=== PATIENT | male | born 1970 | race Caucasian/White ===

== ENCOUNTER 2021-11-11 15:32 | Emergency (ER) | payer OTHER ==
[~2021-11-11] VITALS: Ht 170.2 cm; Wt 83.9 kg
[2021-11-11 15:34] VITALS: BP 137/66
[2021-11-11] MEDS ORDERED: OXYC5TAB3 PO (16:24)
--- NOTE | 2021-11-11 16:46 | NUR ---
Patient discharged to home in stable condition. Written and verbal after care instructions given. Patient verbalizes understanding of instruction.
== END 2021-11-11 16:47 | disposition home or self-care (01) ==
LOC: ER 15:37
DX: G89.18 Other acute postprocedural pain (principal); M25.511 Pain in right shoulder; F17.200 Nicotine dependence, unspecified, uncomplicated; Z79.891 Long term (current) use of opiate analgesic

== ENCOUNTER 2021-12-13 01:08 | Emergency (ER) | payer OTHER ==
[~2021-12-13] VITALS: Ht 177.8 cm; Wt 86.2 kg
[~2021-12-13 01:08] MED LIST: OXYC5TAB3 PO
--- NOTE | 2021-12-13 01:20 | NUR ---
BIBRA 878 FROM HOTEL C/O ETOH AND LEFT SHOULDER PAIN CHRONIC FELT WORSE TODAY . PT TOLERATING R/A WELL WITH NO SOB. AMBULATORY WITH STEADY GAIT. CONNECTED PT TO POX AND MONITOR.
[2021-12-13 01:59] LABS: BASOPHILS # (AUTO) 0.1 K/uL (0.0-0.2); BASOPHILS % (AUTO) 1.2 % (0.0-2.0); EOSINOPHILS % (AUTO) 3.9 % (0.0-6.0); HEMATOCRIT 49 % (39-51); HEMOGLOBIN 16.3 g/dL (13.5-17.5); LYMPHOCYTES # (AUTO) 2.5 K/uL (0.8-4.8); MEAN CORPUSCULAR HGB CONC 34 g/dl (31.0-36.0); MEAN CORPUSCULAR VOLUME 95 fL (80-96); MONOCYTES # (AUTO) 0.4 K/uL (0.1-1.30); MONOCYTES % (AUTO) 7.1 % (2.0-12.0); NEUTROPHILS # (AUTO) 2.7 K/uL (1.8-8.9); NEUTROPHILS % (AUTO) 45.8 % (43.0-81.0); PLATELET COUNT (AUTO) 109 K/uL (150-450); RED BLOOD CELL COUNT(AUTO) 5.12 MIL/uL (4.5-6.0)
[2021-12-13 02:09] LABS: CALCIUM, SERUM 8.2 mg/dL (8.5-10.1); CARBON DIOXIDE 23 mmol/L (21-32); CHLORIDE 107 mmol/L (98-107); CREATININE 0.8 mg/dL (0.6-1.3); GLUCOSE 151 mg/dL (74-106); SODIUM SERUM 143 mmol/L (136-145); UREA NITROGEN, BLOOD 7 mg/dL (7-18)
[2021-12-13 02:11] LABS: POTASSIUM 2.7 mmol/L (3.5-5.1)
[2021-12-13] MEDS ORDERED: POTASSIUM CHLORIDE 20 MEQ TAB.PRT.SR PO ONE ×2 (02:30→03:27)
--- NOTE | 2021-12-13 04:51 | NUR ---
CALLED [facility] TO F/U WITH XRAY RESULTS
--- NOTE | 2021-12-13 06:32 | NUR ---
PT SLEPT THROUGHOUT NIGHT. NO COMPLAINTS. TOLERATING R/A WELL WITH NO SOB. WILL CONTINUE SAFETY MEASURES. ALL NEEDS MET AT THIS TIME.
--- NOTE | 2021-12-13 07:20 | NUR ---
ASSESSED PT ON BED AWAKE AND ALERT, NOT IN RESPIRATORY DISTRESS, V/S STABLE, KEPT RESTED AND COMFORTABLE. WILL CONTINUE TO MONITOR.
--- NOTE | 2021-12-13 10:03 | NUR ---
SS Note: Pt. Is a 51-year-old male who demonstrates adequate insight to the reason for hospitalization. Per pt., he presents to the ER for ETOH and left shoulder pain. Pt. was oriented x3, alert, and was hardly cooperative. During interview, pt. was capable of following directions and appeared unkempt. Pt.'s speech was at a low rate and pt.'s mood was elevated. Pt. reported no hx of mental health, and denies suicidal ideation, or homicidal ideation. Pt. denies auditory hallucinations, visual hallucinations, paranoia, or delusions. SW explored pt.'s living situation. Per pt., he is currently living in a hotel with a friend. Before pt. came to the hospital, pt. stated that he was drinking alcohol [did not state what kind]. Pt. refuses to answer any further questions and mentioned that he is feeling dehydrated. Plan: Pt.'s alcohol level serum is still high. Upon discharge, pt. will return to the hotel.
--- NOTE | 2021-12-13 11:55 | NUR ---
PT ABLE TO AMBULATE WITHOUT ASSISTANCE.
--- NOTE | 2021-12-13 12:00 | NUR ---
Patient discharged to home in stable condition. Written and verbal after care instructions given. Patient verbalizes understanding of instruction.
[2021-12-13 12:02] VITALS: BP 125/64
== END 2021-12-13 12:03 | disposition home or self-care (01) ==
LOC: ER 01:08
DX: M25.512 Pain in left shoulder (principal); F10.129 Alcohol abuse with intoxication, unspecified; R94.31 Abnormal electrocardiogram [ECG] [EKG]; F17.200 Nicotine dependence, unspecified, uncomplicated; Z98.890 Other specified postprocedural states; Z60.2 Problems related to living alone; Y90.8 Blood alcohol level of 240 mg/100 ml or more
CPT/HCPCS: 36415; 71045-TC; 73030-TC; 80048-TC; 84484-TC; 85025-TC; G0480

== ENCOUNTER 2021-12-16 13:11 | Emergency (ER) | payer OTHER ==
[~2021-12-16] VITALS: Ht 177.8 cm; Wt 89.4 kg
--- NOTE | 2021-12-16 13:23 | NUR ---
To er bed 9, NORMA RA88 From Home "Had shoulder surg 6wks ago. Still having pain" Denies injury +ETOH, aaox3, breathing even and non labored, amelia cooper orders
--- NOTE | 2021-12-16 14:05 | NUR ---
SS Consult: SS Consult requested for alcohol abuse & Homelessness. The pt. is a 51-year old male who came to [facility] ED due to post operative shoulder pain. The pt. appears unkempt is A&O X4 and makes good eye contact. Pt. has slurred speech possibly due to alcohol intoxications. Pt.s thought process are WNL. Pt. denies SI/HI an denies hallucinations. Pt.s mood is Depressed with distressed affect. KRISTIAN explored pt.s living situation. Pt. states he has been homeless and was staying in a hotel because a friend was helping him. However, pt. reports he has been on the street for the past 10 days. SW explored pt.s mental health Hx. Pt. denies any mental health illness or psychotropic medications. SW explored pt.s drug & ETOH use. Patient admits to daily alcohol use and states he is self-medicating because he ran out of the medication and missed his doctors appointment. SW used motivational interviewing, educated pt. on negative long-term effects of alcohol dependence. SW offered rehab for alcohol use and pt. refused. SW explored pt.s support system. Pt. states he has a sponsor who he may be able to get help from and will go to their house upon discharged. Pt. states he is ambulatory and independent with his ADLs. D/C PLAN: SW Offered pt. long-term placement and pt. refused and stated I will go to my friends house. Pt. could not provide address but stated he knows how to get there. SW provided pt. with TAP card, homeless resources and pt. accepted them. Pt. signed homeless waiver and it was placed in the pt.s chart. KRISTIAN discussed with Silas FLORES. Year-round shelters: [place] [facility] [address] [place] [address] ; [facility] [place] [address]; [facility] Satwmcj6686 [facility]. [facility] [address] Hygiene: [facility]: [address]. [place] ; [facility] [address] [facility] ; [facility] [address] . Food Resources: [facility] at [facility]- [address]. [place]; Meet Each Need with Dignity ([facility]) [address] [facility]; [facility] [address] [facility]; [facility] [address] [place]. Mental Health resources provided: [facility] [address] [place], [place] [address] ; [facility] [address] [facility] [address], [place], [place] [id number] ; [facility] [address] [place], [place] [id number] ; [facility] [address] [place], [place] [address] Healthcare Clinics: [facility] [address] [facility], [address] [place]. [place] ; [facility] [address] [facility] [address] [place] [address]; [facility] [address] [facility] [place] [address] [phone]) [phone] Counseling--Outpatient [facility] [address] [facility], [address] [place], [place] [address] (Specializes in in-depth psychotherapy for emotional distress: anxiety, depression, interpersonal conflicts, life transitions, childhood abuse) [facility] [address] [place] [address] (Assist with solving problem marital difficulties, separation & divorce, aging parents, & grief, chronic & terminal illness) [facility] [address] [place] [address] (Deal with loss & grief, anxiety, marital difficulties) Homebound/Mental Health Services [address] [facility], [address] [place], [place] [id number] (Provide in-home mental services to people who are incapable of leaving their homes) [facility] Elderly Senior Service/Resource Center [address] [place], [place] [id number] [facility] [address] [facility] [place] [address] PSYCHIATRIC OUTPATIENT SERVICES [facility] Partial Hospitalization and Intensive Outpatient Program (Managed Care and [place] Only)[address] [facility] [phone] [facility] Partial Hospitalization and Outpatient [address] [place], [place] [phone] [facility] Sch[address] [facility]. [address] [place], [place] [phone] [facility] Partial Hospitalization and Outpatient [address] [place] [address] [place], [phone] Substance Abuse resources provided included: [facility] Substance Abuse Self-Helpline ([facility]) ; [facility] [address] [facility]. [place] [address] ; [facility] [address] [facility] [address] ; [facility] Program [address] [address] ; [facility] [address] [facility] [address] ; [facility] [address] [facility] [phone] ; [facility] [address] [facility] [address] ; [facility] Substance Abuse Helpline([facility] ; [facility] ; [facility]; [facility] [place]; [facility] [place]; [facility] [address]; [facility]; [facility]; [facility]; [facility], [facility]. [place]; Alcoholics Anonymous -[facility]; [place] ; Marijuana Anonymous [facility]; Narcotics Anonymous www.na.org;
--- NOTE | 2021-12-16 14:10 | NUR ---
Patient discharged to home in stable condition. Written and verbal after care instructions given. Patient verbalizes understanding of instruction.
[2021-12-16 14:11] VITALS: BP 131/78
== END 2021-12-16 14:11 | disposition home or self-care (01) ==
LOC: ER 13:14
DX: F10.129 Alcohol abuse with intoxication, unspecified (principal); M25.512 Pain in left shoulder; F17.200 Nicotine dependence, unspecified, uncomplicated; Z79.899 Other long term (current) drug therapy; Y90.9 Presence of alcohol in blood, level not specified

== ENCOUNTER 2021-12-25 11:28 | Emergency (ER) | payer OTHER ==
[~2021-12-25] VITALS: Ht 177.8 cm; Wt 90.7 kg
--- NOTE | 2021-12-25 11:32 | NUR ---
[id number], "ETOH, UNABLE TO TAKE CARE OF SELF, CALLED 911". TO ER BED13. HOOKED TO MONITOR, VSS, CHANGED TO HOSP GOWN, WARM BLANKET PROVIDED. AWAITING MD LINDA
--- NOTE | 2021-12-25 12:05 | NUR ---
PT IS BACK FROM CT SCAN.
--- NOTE | 2021-12-25 16:50 | NUR ---
PT ABLE TO AMBULATE WITHOUT ASSISTANCE. AWARE.
--- NOTE | 2021-12-25 17:01 | NUR ---
Patient discharged to home in stable condition. Written and verbal after care instructions given. Patient verbalizes understanding of instruction.
[2021-12-25 17:02] VITALS: BP 125/82
== END 2021-12-25 17:02 | disposition home or self-care (01) ==
LOC: ER 11:42
DX: F10.229 Alcohol dependence with intoxication, unspecified (principal); F17.200 Nicotine dependence, unspecified, uncomplicated; G89.29 Other chronic pain; Z79.899 Other long term (current) drug therapy; Y90.9 Presence of alcohol in blood, level not specified
CPT/HCPCS: 70450-TC

== ENCOUNTER 2021-12-25 19:49 | Emergency (ER) | payer OTHER ==
[~2021-12-25] VITALS: Ht 177.8 cm; Wt 90.7 kg
--- NOTE | 2021-12-25 20:28 | NUR ---
BRI [address] C/O BEING FOUND ON SIDE WALK WITH BEER CANS AND cigarette next to him. vss, no acute distress noted. taken to er bed 14
--- NOTE | 2021-12-26 00:35 | NUR ---
PT SLEEPING. IN NO ACUTE DISTRESS AT THIS TIME. VSS. ALL NEEDS MET. SAFETY MEASURES CONTINUED.
--- NOTE | 2021-12-26 02:31 | NUR ---
ADLS DONE. PT URINATED. ALL NEEDS MET AT THIS TIME
--- NOTE | 2021-12-26 06:15 | NUR ---
PT IS AWAKE. NOT IN ANY DISTRESS. PT IS AMBULATORY ON STEADY GAIT. PROVIDED WITH WATER AND GATORADE. PT IS CLEARED FOR DISCHARGE
--- NOTE | 2021-12-26 06:17 | NUR ---
Patient discharged to home in stable condition. Written and verbal after care instructions given. Patient verbalizes understanding of instruction. Pt ambulatory with a steady gait
[2021-12-26 06:18] VITALS: BP 132/78
== END 2021-12-26 06:18 | disposition home or self-care (01) ==
LOC: ER 19:53
DX: F10.129 Alcohol abuse with intoxication, unspecified (principal); Z79.899 Other long term (current) drug therapy; Y90.9 Presence of alcohol in blood, level not specified

== ENCOUNTER 2022-08-10 08:11 | Inpatient (IN) | payer OTHER ==
[~2022-08-10] VITALS: Ht 177.8 cm; Wt 88.0 kg
[2022-08-10] MEDS ORDERED: LORAZEPAM INJ 2 MG/ML VIAL ONE (08:24)
[2022-08-10] MEDS ORDERED: LORAZEPAM INJ 2 MG/ML VIAL IV ONE (08:30)
[2022-08-10] MEDS ORDERED: IV NS 0.9% 1,000 ML BAG IV ONE (08:30)
[2022-08-10 08:35] LABS: BASOPHILS % (AUTO) 0.2 % (0.0-2.0); EOSINOPHILS % (AUTO) 0.1 % (0.0-6.0); HEMATOCRIT 37 % (39-51); LYMPHOCYTES # (AUTO) 0.5 K/uL (0.8-4.8); LYMPHOCYTES % (AUTO) 5.5 % (20.0-44.0); MEAN CORPUSCULAR HGB CONC 33 g/dl (31.0-36.0); MEAN CORPUSCULAR VOLUME 101 fL (80-96); MONOCYTES # (AUTO) 1.4 K/uL (0.1-1.30); MONOCYTES % (AUTO) 15.3 % (2.0-12.0); NEUTROPHILS # (AUTO) 7.1 K/uL (1.8-8.9); NEUTROPHILS % (AUTO) 78.9 % (43.0-81.0); PLATELET COUNT (AUTO) 91 K/uL (150-450)
--- NOTE | 2022-08-10 08:36 | NUR ---
Patient bibra60 [place], c/o being cold only wearing hospital gown. On room air. Warmer applied on the patient. IV access in placed. Ativan and Normal saline given. Kept comfortable, will continue to monitor accordingly. Connected to the monitor and pulse ox.
--- NOTE | 2022-08-10 08:48 | NUR ---
COVID SWAB TAKEN
[2022-08-10 08:59] LABS: ALBUMIN 4.2 g/dL (3.4-5.0); BILIRUBIN,DIRECT 1.7 mg/dL (0.0-0.2); BILIRUBIN,TOTAL 2.5 mg/dL (0.2-1.0); CALCIUM, SERUM 8.2 mg/dL (8.5-10.1); CREATININE 1.6 mg/dL (0.6-1.3); TOTAL PROTEIN, SERUM 7.7 g/dL (6.4-8.2)
[2022-08-10 09:06] LABS: POTASSIUM 2.6 mmol/L (3.5-5.1)
--- NOTE | 2022-08-10 09:08 | NUR ---
2.6 POTASSIUM , MADE AWARE
[2022-08-10] MEDS ORDERED: POTASSIUM CL. PREMIX PERIPHER. 50 ML ONE ×5 (09:30→13:30)
[2022-08-10] MEDS ORDERED: IV NS 0.9% 1,000 ML IV ONE (09:30)
[2022-08-10] MEDS: POTASSIUM CL. PREMIX PERIPHER. 50 ML IV SCH ×6 (09:40→16:10)
--- NOTE | 2022-08-10 09:49 | NUR ---
RECTAL TEMP 93.8f
--- NOTE | 2022-08-10 10:06 | NUR ---
Received a call from Mercedes AVILEZ from [facility] and gave a verbal auth.
[2022-08-10] MEDS: IV NS 0.9% 1,000 ML IV SCH ×2 (10:28→16:09)
[2022-08-10] MEDS ORDERED: ONDANSETRON HCL/PF 4 MG/2 ML VIAL IVP PRN (10:30)
[2022-08-10] MEDS ORDERED: ACETAMINOPHEN 325 MG TABLET PO PRN (10:30)
[2022-08-10] MEDS ORDERED: MAGNESIUM HYDROXIDE 30 ML UDC PO PRN (10:30)
[2022-08-10] MEDS ORDERED: MAG HYDROX/AL HYDROX/SIMETH 30 ML UDC PO PRN (10:30)
[2022-08-10] MEDS ORDERED: Z GUARD REMEDY 4 OZ OINT TP PRN (10:30)
[2022-08-10] MEDS ORDERED: THIAMINE HCL 100 MG TABLET PO ONE (10:30)
[2022-08-10] MEDS ORDERED: LORAZEPAM INJ 2 MG/ML VIAL IV PRN (10:30)
[2022-08-10] MEDS ORDERED: LACTULOSE 10 G/15 ML UDC (PYXIS) PO ONE (11:00)
[2022-08-10] MEDS ORDERED: LACTULOSE 10 G/15 ML UDC (PYXIS) ONE (11:50)
[2022-08-10] MEDS ORDERED: THIAMINE HCL 100 MG TABLET ONE (12:36)
--- NOTE | 2022-08-10 14:08 | NUR ---
ASSIGNED BED 107 , ADMITTING MADE AWARE
--- NOTE | 2022-08-10 14:22 | NUR ---
report given to Nurse Kashmir MARTÍNEZ for ANISH
[2022-08-10 14:48] VITALS: BP 138/74
[2022-08-10] MEDS ORDERED: POTASSIUM CHLORIDE 20 MEQ TAB.PRT.SR PO ONE (17:00)
[2022-08-10 17:14] LABS: LYMPHOCYTES % (MANUAL) 6 % (16-48); MONOCYTES % (MANUAL) 14 % (0-11.0); NEUTROPHILS % (MANUAL) 80 (42-76)
[2022-08-10] MEDS: CHLORDIAZEPOXIDE HCL 25 MG CAPSULE PO SCH (17:38)
--- NOTE | 2022-08-10 19:10 | NUR ---
POOL CLEANER OPENING NOTE PATIENT IS IN BED WATCHING TV. HE IS ALERT AND ORIENTED, AO X 4. HE IS ON RA, O2 SAT IS 97%; TOLERATED WELL. NO S/S OF SOB OR DISTRESS. PATIENT HAS TWO IV ACCESS: ONE IS AT HIS L UA, ML, #18G, RUNNING NS @ 125 ML/HR; ANOTHER IS AT HIS LEFT HAND. #22G, SL. BOTH ACCESS ARE PATENT AND INTACT. PATIENT IS ON EXTERNAL TELE MONITOR, ON THE MONITOR, HIS HEAR RHYTHM IS SR WITH HR AT 70S. ACCORDING TO CHANGE SHIFT REPORT, PATIENT'S BLOOD POTASSIUM LEVEL WAS LOW EARLIER TODAY, IT HAS BEING REPLACED DURING THE DAY SHIFT. SAFETY MEASURES ARE IN PLACE: BED IN LOWEST AND LOCKED POSITION; SIDE RAILS UP X 2; CALL LIGHT AND TABLE ARE WITHIN REACH; SNACKS PROVIDED PER PATIENT REQUEST. WILL CONTINUE MONITOR THE PATIENT AND PROVIDE THE CARE PATIENT NEEDS.
--- NOTE | 2022-08-10 19:21 | NUR ---
RN NOTE PATIENT TRANSFERRED FROM ER AT 1448, REPORT GIVEN BY ARIADNA BLUM. PATIENT IS AOX4, BREATHING ON ROOM AIR AT 97%. TELE MONITOR READING ST WITH HR OF 108. NO PAIN NOTED AT THIS TIME. IV ACCESS ON ÁLVARO MIDLINE AND LH #22G RUNNING NS AT 125MLS. PATIENT BELONGINGS ACCOUNTED FOR. PICTURES TAKEN AND PLACED IN CHART. ALL SAFETY PRECAUTIONS IN PLACE, BED LOCKED IN LOWEST POSITION. CALL LIGHT AND TABLE WITHIN REACH. WILL ENDORSE CONTINUITY OF CARE TO HAND CELL TUBER NURSE.
[2022-08-10 20:00] VITALS: BP 114/66
[2022-08-11] MEDS: IV NS 0.9% 1,000 ML IV SCH ×3 (01:58→19:20)
[2022-08-11 04:00] VITALS: BP 103/70
--- NOTE | 2022-08-11 07:42 | NUR ---
DOCUMENT CONTROLLER CLOSING NOTE PATIENT IS IN BED. HE IS ALERT AND ORIENTED, AO X 4. HE IS ON RA, O2 SAT IS 97%; TOLERATED WELL. NO S/S OF SOB OR DISTRESS. CHEST X-RAY IS DONE DURING CHANGE SHIFT. PATIENT HAS TWO IV ACCESS: ONE IS AT HIS L UA, ML, #18G, RUNNING NS @ 125 ML/HR; ANOTHER IS AT HIS LEFT HAND. #22G, SL. BOTH ACCESS ARE PATENT AND INTACT. PATIENT IS ON EXTERNAL TELE MONITOR, ON THE MONITOR, HIS HEAR RHYTHM IS SR WITH HR AT 70S. SAFETY MEASURES ARE IN PLACE: BED IN LOWEST AND LOCKED POSITION; SIDE RAILS UP X 2; CALL LIGHT AND TABLE ARE WITHIN REACH; SNACKS PROVIDED PER PATIENT REQUEST. WILL ENDORSE THE NEXT SHIFT FOR CONTINUING PATIENT CARE. Addendum: 08/11/22 at 0746 by SYL MENDEZ RN NO X-RAY IS DONE FOR THIS PATIENT. ERROR.
[2022-08-11 08:00] VITALS: BP 120/77
[2022-08-11 08:06] LABS: BASOPHILS % (AUTO) 0.3 % (0.0-2.0); EOSINOPHILS % (AUTO) 0.5 % (0.0-6.0); HEMATOCRIT 30 % (39-51); LYMPHOCYTES # (AUTO) 1.3 K/uL (0.8-4.8); LYMPHOCYTES % (AUTO) 23.7 % (20.0-44.0); MEAN CORPUSCULAR HGB CONC 34 g/dl (31.0-36.0); MEAN CORPUSCULAR VOLUME 100 fL (80-96); MONOCYTES # (AUTO) 1.1 K/uL (0.1-1.30); MONOCYTES % (AUTO) 19.4 % (2.0-12.0); NEUTROPHILS # (AUTO) 3.1 K/uL (1.8-8.9); NEUTROPHILS % (AUTO) 56.1 % (43.0-81.0); PLATELET COUNT (AUTO) 77 K/uL (150-450); RED BLOOD CELL COUNT(AUTO) 2.97 MIL/uL (4.5-6.0); WHITE BLOOD COUNT (AUTO) 5.6 K/uL (4.3-11.0)
[2022-08-11 08:14] LABS: CALCIUM, SERUM 7.8 mg/dL (8.5-10.1); CREATININE 0.8 mg/dL (0.6-1.3); MAGNESIUM 1.8 mg/dL (1.8-2.4); PHOSPHORUS 1.1 mg/dL (2.5-4.9)
[2022-08-11 08:42] LABS: POTASSIUM 2.8 mmol/L (3.5-5.1)
[2022-08-11] MEDS: FOLIC ACID 1 MG TABLET PO SCH (09:58)
[2022-08-11] MEDS: MULTIVITAMINS,THERAGRAN 1 UDTAB TABLET PO SCH (09:58)
[2022-08-11] MEDS: CHLORDIAZEPOXIDE HCL 25 MG CAPSULE PO SCH ×2 (09:58→16:10)
[2022-08-11] MEDS ORDERED: K PHOS NEUTRAL 250 MG TABLET PO ONE (11:30)
[2022-08-11 12:00] VITALS: BP 106/77
[2022-08-11] MEDS ORDERED: POTASSIUM CHLORIDE 20 MEQ TAB.PRT.SR PO ONE (12:00)
[2022-08-11] MEDS: POTASSIUM CHLORIDE 20 MEQ TAB.PRT.SR PO SCH ×5 (12:34→16:09)
[2022-08-11] MEDS: POTASSIUM PHOSPHATE MM 7.5 MMOL in IV NS 0.9% 100 ML IV SCH ×2 (12:35→16:09)
[2022-08-11 16:00] VITALS: BP 114/76
[2022-08-11 20:00] VITALS: BP 108/76
[2022-08-11 20:18] LABS: LYMPHOCYTES % (MANUAL) 22 % (16-48); MONOCYTES % (MANUAL) 9 % (0-11.0); NEUTROPHILS % (MANUAL) 69 (42-76)
[2022-08-12] VITALS: BP 126/79
[2022-08-12 00:11] VITALS: BP 126/79
[2022-08-12] MEDS: IV NS 0.9% 1,000 ML IV SCH (02:39)
[2022-08-12 04:00] VITALS: BP 134/88
--- NOTE | 2022-08-12 04:18 | NUR ---
CLOSING NOTES: ALERT AND ORIENTATED X4 ENJOYS CONVERSATION LARGE SNACK CONSUMED 100% ASKING FOR FOOD FREQUENTLY USING THE URINAL CHANGING HIS OWN POSITION IN THE BED NOTED LEFT HIP PURPLEISH LARGE BRUISE EXCESSIVE WATER DRINKING
[2022-08-12 08:00] VITALS: BP 126/84
[2022-08-12 08:51] LABS: CALCIUM, SERUM 8.3 mg/dL (8.5-10.1); CREATININE 0.6 mg/dL (0.6-1.3); PHOSPHORUS 2.8 mg/dL (2.5-4.9); POTASSIUM 3.2 mmol/L (3.5-5.1)
[2022-08-12] MEDS: CHLORDIAZEPOXIDE HCL 25 MG CAPSULE PO SCH (08:51)
[2022-08-12] MEDS: FOLIC ACID 1 MG TABLET PO SCH (08:51)
[2022-08-12] MEDS: MULTIVITAMINS,THERAGRAN 1 UDTAB TABLET PO SCH (08:51)
[2022-08-12] MEDS ORDERED: Folic Acid PO (09:36)
[2022-08-12] MEDS ORDERED: MULT-24 PO (09:36)
[2022-08-12] MEDS ORDERED: THIA100T88 PO (09:36)
[2022-08-12] MEDS ORDERED: POTASSIUM CHLORIDE 20 MEQ TAB.PRT.SR PO ONE (10:00)
[2022-08-12 12:00] VITALS: BP 132/91
--- NOTE | 2022-08-12 13:09 | NUR ---
Patient discharged. Midline and peripheral IV removed per protocol without complications. Patient escorted of unit. Transportation arranged by case management.
== END 2022-08-12 13:21 | disposition home or self-care (01) | DRG 815 ==
LOC: ER 08:17 → ICUOV 14:35 → TELE1 14:59
PROVIDERS: ADMIT Internal Medicine; ATTEND Internal Medicine
PROC: 05HA33Z Insertion of Infusion Device into Left Brachial Vein, Percutaneous Approach (ICD-10-PCS; principal; 2022-08-10)
DX: T68.XXXA Hypothermia, initial encounter (principal); N17.0 Acute kidney failure with tubular necrosis; G92.8 Other toxic encephalopathy; D61.89 Other specified aplastic anemias and other bone marrow failure syndromes; E72.20 Disorder of urea cycle metabolism, unspecified; E87.1 Hypo-osmolality and hyponatremia; E87.20 Acidosis, unspecified; D63.8 Anemia in other chronic diseases classified elsewhere; D69.59 Other secondary thrombocytopenia; F10.129 Alcohol abuse with intoxication, unspecified; E16.2 Hypoglycemia, unspecified; Z20.822 Contact with and (suspected) exposure to COVID-19; Y90.6 Blood alcohol level of 120-199 mg/100 ml; Z98.890 Other specified postprocedural states; Z86.59 Personal history of other mental and behavioral disorders; E87.6 Hypokalemia; K70.10 Alcoholic hepatitis without ascites; F17.200 Nicotine dependence, unspecified, uncomplicated; X31.XXXA Exposure to excessive natural cold, initial encounter; D53.9 Nutritional anemia, unspecified; Z72.51 High risk heterosexual behavior; Z59.00 Homelessness unspecified
CPT/HCPCS: 36415; 80048-TC; 80076-TC; 82140-TC; 82962-TC; 83735-TC; 84100-TC; 84132-TC; 85025-TC; 86592; 86593; 87081-TC; 87806; C9803; G0378; G0480; J2060; J3480; J3490; J7030